=== PATIENT | male | born 1950 | race Caucasian/White ===

== ENCOUNTER 2017-08-25 09:31 | Outpatient (CLI) | payer MEDICARE, OTHER ==
--- NOTE | 2017-08-25 18:09 | RAD ---
CHEST TWO VIEWS: 08/25/17 No prior films were available for comparison. The heart is normal in size. The lungs are clear. There is no sign of pneumonia or pleural effusion. The mediastinum was unremarkable. Degenerative changes are noted in the mid to lower thoracic spine. IMPRESSION: No acute thoracic finding. POS: HOME
== END 2017-08-25 09:32 | disposition home or self-care (01) ==
LOC: BURRAD 09:31
PROVIDERS: ATTEND Family Medicine
DX: J40 Bronchitis, not specified as acute or chronic (principal)
CPT/HCPCS: 71046

== ENCOUNTER 2021-09-14 13:58 | Emergency (ER) | payer MEDICARE, OTHER | END 2021-09-14 14:50 | disposition home or self-care (01) | LOC: BURERS 13:58 | DX: S82.64XA Nondisplaced fracture of lateral malleolus of right fibula, initial encounter for closed fracture (principal); F17.210 Nicotine dependence, cigarettes, uncomplicated; W17.89XA Other fall from one level to another, initial encounter | CPT/HCPCS: 27786 ==